=== PATIENT | female | born 1980 | race Asian ===

== ENCOUNTER 2023-02-21 16:00 | Emergency (ER) | payer BC, OTHER ==
[~2023-02-21] VITALS: Ht 162.6 cm; Wt 61.2 kg
[2023-02-21 17:36] VITALS: BP 102/69; TEMP 98.5; O2SAT 100
== END 2023-02-21 17:37 | disposition left against medical advice (07) ==
LOC: ER 16:05
DX: F41.9 Anxiety disorder, unspecified (principal); Z53.21 Procedure and treatment not carried out due to patient leaving prior to being seen by health care provider